=== PATIENT | male | born 1955 | race Caucasian/White ===

== ENCOUNTER 2022-05-08 07:45 | Day surgery (SDC) | payer MEDICARE ==
[~2022-05-08] VITALS: Ht 167.6 cm; Wt 66.5 kg
[2022-05-08] MEDS ORDERED: NORVASC 5MG5 MG/TAB PO (08:37)
[2022-05-08] MEDS ORDERED: PRAVACHOL 20MG20 MG PO (08:38)
[2022-05-08 09:30] VITALS: BP 131/98; PULSE 88; TEMP 96.8
--- NOTE | 2022-05-08 09:38 | NUR ---
0930 - PT arrives from procedure w/ Alanna RN. PT assisted with ambulating from cart to chair 2:1. Monitors applid. Warm blankets applied. PT denies pain and nausea. Vitals obtained. PT provided a warm muffin and hot coffee per request w/ cream and sugar seperate. PT oriented to room and call marroquin, within reach. Will monitor per intervals.
[2022-05-08 09:45] VITALS: BP 142/84; PULSE 88
--- NOTE | 2022-05-08 09:45 | NUR ---
0945 - [facility]. PT expressed desire to be discharged. Anjali was contacted per PT request about ETA. Call marroquin remains within reach if needed. PT has finished his muffin and continues to sip his coffee; denies nasuea and pain.
[2022-05-08 10:00] VITALS: BP 128/82; PULSE 86
--- NOTE | 2022-05-08 10:00 | NUR ---
1000 - [facility]. PT expressed desire to be discharged. IV discontinued. Catheter tip intact. Pressure bandage applied; No redness or swelling noted. DC instructions and educational material revewed w/ PT who verbalized understanding and signed the related paperwork. Questions answered to PT satisfaction. PT refused RN assistance changing into personal clothes, however, call marroquin remains within reach if needed. Awaiting DR to speak with PT.
--- NOTE | 2022-05-08 10:05 | NUR ---
is speaking w/ PT
--- NOTE | 2022-05-08 10:15 | NUR ---
PT dismissed from endo via wheelchair to the PT entrence. PT has DC packet and personal belongings, PT was transferred into the care of Anjali who is driving private car.
[2022-05-08 13:40] VITALS: BP 145/85; PULSE 93; TEMP 97.5
== END 2022-05-08 10:15 | disposition home or self-care (01) ==
LOC: SDCO 07:45
DX: Z12.11 Encounter for screening for malignant neoplasm of colon (principal)
CPT/HCPCS: J2704; J7030